=== PATIENT | male | born 2000 | race Asian ===

== ENCOUNTER 2022-10-25 11:57 | Emergency (ER) | payer OTHER, SELFPAY ==
[2022-10-25 12:10] VITALS: BP 136/99; PULSE 61; TEMP 36.2; O2SAT 100; BMI 23.5
--- NOTE | 2022-10-25 12:15 | CRLHL7_ITS ---
For Patients: As a result of the Century Cures Act, medical imaging exams and procedure reports are released immediately into your electronic medical record. You may view this report before your referring provider. If you have questions, please contact your health care provider. HISTORY: Evaluate for possible torsion. TECHNIQUE: Scrotal ultrasound. COMPARISON: No prior. FINDINGS: Right testicle measures 4.6 x 2.7 x 2.8 cm in size. Blood flow is detected within the right testicle without findings of right testicular torsion. No right testicular mass. No right-sided hydrocele or varicocele. - Left testicle measures 4.1 x 2.9 x 3.3 cm in size. Blood flow is not definitively confirmed within the left testicle. No left testicular mass. Small amount of left hemiscrotal fluid. Left epididymis unremarkable. No left-sided varicocele. IMPRESSION: 1. Findings suspicious for left-sided testicular torsion without definitive blood flow confirmed within the left testicle. Small amount of left hemiscrotal fluid. No left testicular mass. 2. Normal right testicle. Findings discussed with Dr. Chakraborty on 10/25/2022 at 1400 hours. Dictated by Manpreet Solorio MD @ 10/25/2022 1:59:15 PM Dictated by: Manpreet Solorio MD @ 10/25/2022 14:01:06 (Electronically Signed)
--- NOTE | 2022-10-25 12:17 | ED_ITS ---
HPI - Male Genitourinary General Chief complaint: Urogenital Problems, Male Stated complaint: Pain in abdominal and scrotum area Time Seen by Provider: 10/25/22 12:05 History of Present Illness HPI Narrative: This 22-year-old male comes in with left testicular pain that began a couple ho urs prior to arrival. He reports severe pain in this area but otherwise has been in good health. Related Data Home Medications Medication Instructions Recorded Confirmed No Known Home Medications 10/25/22 10/25/22 Allergies Allergy/AdvReac Type Severity Reaction Status Date / Time No Known Drug Allergies Allergy Verified 10/25/22 12:10 Review of Systems Status of ROS: Reports: 10 or more systems reviewed and unremarkable except as noted in History and below Narrative: Constitutional: No fevers, no weight gain or loss. Eyes: No discharge. No vision changes. HENT: No congestion, no sore throat, no ear pain. Cardiovascular: No chest pain, no palpitations. Respiratory: No shortness of breath, no wheezes, no cough. Gastrointestinal: No abdominal pain, no vomiting, no diarrhea. Genitourinary: No dysuria, no hematuria. Left testicular pain. Musculoskeletal: Normal range of motion. Skin: No rashes, no pruritis. Neurological: No dizziness, weakness, sensory change, speech change. Endo/Heme/Allergies: No bruising or bleeding. No polydipsia. Pysch: no suicidality, no anxiety, no insomnia. All other systems reviewed and are negative. [facility] Surgical History (Updated 10/25/22 @ 12:12 by Esperanza Negrete RN) History of appendectomy ?Z90.49 - Acquired absence of other specified parts of digestive tract (ICD- 10) Social History Smoking Status: Never smoker Do you use any of these nicotine containing products: None Second hand tobacco smoke exposure: No How often do you have a drink containing alcohol: never How often do you have six or more drinks on one occasion: Never AUDIT-C Alcohol total score: 0 Non-prescribed substance use: denies use service: No Exam Narrative: Exam Narrative: Constitutional: Well-developed, well-nourished, no acute distress. HEENT: Normocephalic, atraumatic. Neck: Normal range of motion. Nontender. Supple. Heart: Regular. No murmurs. Normal rate. Intact distal pulses. Lungs: Clear to auscultation. No chest discomfort. No wheezes, rhonchi, or rales. Abdomen: Normal bowel sounds. Nontender. No rebound tenderness. Genitalia: Left testicle does appear to be rotated inwardly. Cremasteric reflex is absent. Back: No midline tenderness. Normal range of motion. Extremities: Normal range of motion. No injury. Skin: Intact. No rash. Warm. No erythema or pallor. Neurologic: No altered sensation. No weakness. Alert and oriented. Psychiatric: No suicidality. No anxiety or depression. No insomnia. Nursing notes and vitals signs are reviewed. Const: Vital Signs, click to edit/add: Vital Signs - 24 hr 10/25/22 12:10 10/25/22 12:34 10/25/22 12:35 Temperature 97.1 F L Pulse Rate 59 L 61 Pulse Rate [Pulse Oximeter] 61 Respiratory Rate Blood Pressure 142/98 H Blood Pressure [Le ft Upper Arm] 136/99 H Pulse Oximetry 100 98 99 Oxygen Delivery Me thod Room Air 10/25/22 13:18 Temperature 97.3 F L Pulse Rate Pulse Rate [Pulse Oximeter] 59 L Respiratory Rate 16 Blood Pressure Blood Pressure [Le ft Upper Arm] 146/93 H Pulse Oximetry 100 Oxygen Delivery Me thod Room Air Course Vital Signs Vital signs: Initial Vital Signs Temperature 97.1 F L 10/25/22 12:10 Temperature Source Temporal Artery Scan 10/25/22 12:10 Pulse Rate 61 10/25/22 12:10 Blood Pressure 136/99 H 10/25/22 12:10 Blood Pressure Mean 111 10/25/22 12:10 Blood Pressure Position Supine 10/25/22 12:10 Pulse Oximetry 100 10/25/22 12:10 Oxygen Delivery Method Room Air 10/25/22 12:10 Vital Signs Temperature 97.1 F L 10/25/22 12:10 Pulse Rate 61 10/25/22 12:10 Blood Pressure 136/99 H 10/25/22 12:10 Pulse Oximetry 100 10/25/22 12:10 Oxygen Delivery Method Room Air 10/25/22 12:10 Temperature 97.3 F L 10/25/22 13:18 Pulse Rate 59 L 10/25/22 13:18 Respiratory Rate 16 10/25/22 13:18 Blood Pressure 146/93 H 10/25/22 13:18 Pulse Oximetry 100 10/25/22 13:18 Oxygen Delivery Method Room Air 10/25/22 13:18 MDM - Male Genitourinary MDM Narrative Medical decision making narrative: This patient comes in with severe pain in his left testicle. His cremasteric reflex is negative. There is a observable rotation of the left testicle suspicious for torsion. Ultrasound imaging confirms very minimal flow blood in the left testicle. Patient had an IV established and received Dilaudid 0.5 mg which brought temporary relief. I did attempt to do an open book style reduction which brought some temporary relief but is soon is I let go the testicle reverted back to its torsed position. After a 2nd dose of Dilaudid I attempted again with little more vigorous activity to reduce this torsion. Again there was temporary relief but no sign that the testicle would remain on torsed. I did speak with Dr. Chaudhry, urologist at [facility], who will take the patient to surgery immediately. There were no beds available but the patient is allowed to go to the ER to be taken immediately to surgery. Dr. Caretr is the ER physician I spoke to in this regard. Lab Data Labs: Lab Results 10/25/22 Range/Units 12:25 WBC 5.66 (4.50-11.00) K/uL RBC 5.36 (4.30-5.90) m/uL Hgb 15.5 (13.5-17.5) gm/dL Hct 46.4 (37.0-53.0) % MCV 87 (80-100) fL MCH 29 (26-34) pg MCHC 33 (32-36) gm/dL RDW Coeff of Cami 12.0 (11.5-15.5) % Plt Count 243 (140-440) K/uL Neut % (Auto) 50.1 (42.0-72.0) % Lymph % (Auto) 34.8 (20-44) % [place] % (Auto) 7.1 (0.0-11.0) % Eos % (Auto) 7.4 H (0.0-7.0) % Baso % (Auto) 0.4 (0.0-3.0) % Neut # (Auto) 2.84 (1.7-7.0) K/uL Lymph # (Auto) 1.97 (0.90-2.90) K/uL [place] # (Auto) 0.40 (0.00-0.90) K/UL Eos # (Auto) 0.40 (0.00-0.50) K/uL Baso # (Auto) 0.02 (0.00-0.30) K/uL SARS-CoV-2 (PCR) Negative SARS-CoV-2 (Negative) Influenza Type A (PCR) Negative PCR FLU A (Negative) Influenza Type B (PCR) Negative PCR FLU B (Negative) Discharge Plan Discharge Clinical Impression: Testicular torsion Patient Disposition: Xfer Other Condition: Unchanged Prescriptions: No Action No Known Home Medications Follow Up/Referrals: Provider,Not a Local [Primary Care Provider] - Stand Alone Forms: MyHealth Info Instructions
[2022-10-25] MEDS: ONDANSETRON 2 MG/ML inj 4 MG IVP (12:25)
[2022-10-25] MEDS: HYDROmorphone 0.5 mg/0.5 ml inj IVP ×2 (12:25→13:03)
[2022-10-25 12:34] VITALS: BP 142/98; PULSE 59; O2SAT 98
[2022-10-25 12:35] VITALS: PULSE 61; O2SAT 99
[2022-10-25 12:38] LABS: Basophils Absolute Auto 0.02 K/uL (0.00-0.30); Basophils Percent Auto 0.4 % (0.0-3.0); Eosinophils Percent Auto 7.4 % (0.0-7.0); Hematocrit 46.4 % (37.0-53.0); Hemoglobin* 15.5 gm/dL (13.5-17.5); Immature Granulocytes Abs Auto 0.01 K/uL (0.00-0.30); Immature Granulocytes Pct Auto 0.2 %; Lymphocytes Absolute Auto 1.97 K/uL (0.90-2.90); Lymphocytes Percent Auto 34.8 % (20-44); Mean Corpuscular HGB Conc 33 gm/dL (32-36); Mean Corpuscular Hemoglobin 29 pg (26-34); Mean Corpuscular Volume 87 fL (80-100); Monocytes Percent Auto 7.1 % (0.0-11.0); Neutrophils Absolute Auto 2.84 K/uL (1.7-7.0); Neutrophils Percent Auto 50.1 % (42.0-72.0); Platelet Count* 243 K/uL (140-440); Red Blood Count 5.36 m/uL (4.30-5.90); Slide Review Reflex No; White Blood Count* 5.66 K/uL (4.50-11.00)
--- NOTE | 2022-10-25 12:49 | ED.NURSE ---
US with patient at bedside.
--- NOTE | 2022-10-25 13:17 | ED.NURSE ---
Report called to [facility] nurse, Noelle, at [phone]. All questions answered. Pt to be transported by [facility] to [facility].
[2022-10-25 13:18] VITALS: BP 146/93; PULSE 59; RESP 16; TEMP 36.3; O2SAT 100
[2022-10-25 13:20] LABS: PCR FLU A Negative PCR FLU A (Negative); PCR FLU B Negative PCR FLU B (Negative)
[2022-10-25 13:25] LABS: SARS PCR* Negative SARS-CoV-2 (Negative)
== END 2022-10-25 13:31 | disposition other institution (70) ==
PROVIDERS: Emergency Provider Emergency Medicine Emergency Medical Services
DX: N44.00 Torsion of testis, unspecified (principal)
CPT/HCPCS: 36415; 76870; 85025; 87631; 93976; 96374; 96375; 96376; 99285; J1170; J2405

== ENCOUNTER 2022-10-25 13:25 | Outpatient (CLI) | payer OTHER, SELFPAY | END 2022-10-25 13:26 | disposition home or self-care (01) | LOC: AMB 10-26 03:07 | PROVIDERS: Visit Provider Emergency Medicine Emergency Medical Services | DX: N44.00 Torsion of testis, unspecified (principal) | CPT/HCPCS: A0425; A0426; A0427 ==